=== PATIENT | female | born 1980 | race Caucasian/White ===

== ENCOUNTER → 2025-02-09 17:15 | Outpatient (CLI) | payer OTHER, SELFPAY ==
--- NOTE | 2025-02-09 17:17 | DI.RAD.S_ITS ---
PROCEDURE: XR KNEE LT 3V INDICATIONS: Twisted left knee TECHNIQUE: 3 views of the knee were acquired. COMPARISON: None. FINDINGS: Bones: No fractures or dislocations. No significant patellar subluxation. Joint spaces are well preserved. No suspicious bony lesions. Soft tissues: No significant joint effusion. No suspicious soft tissue calcifications. IMPRESSION: No acute left knee fracture or dislocation. No significant joint effusion. Dictated by: Gio Nielsen M.D. on 02/11/2025 at 2:02 Approved by: Gio Nielsen M.D. on 02/11/2025 at 2:02
== END ==
PROVIDERS: Referring Provider Physician Assistant; Visit Provider Physician Assistant
DX: S86.912A Strain of unspecified muscle(s) and tendon(s) at lower leg level, left leg, initial encounter (principal); X50.0XXA Overexertion from strenuous movement or load, initial encounter
CPT/HCPCS: 73562